=== PATIENT | female | born 1990 | race Caucasian/White ===

== ENCOUNTER 2016-10-04 11:12 | Emergency (ER) | payer MEDICAID ==
[~2016-10-04 11:12] MED LIST: PREN29TA PO; REGL10TA5 PO; ZOFR4TAB3 SL
--- NOTE | 2016-10-04 12:25 | PD ---
HPI Travel History International Travel<30 Days: No Contact w/Intl Traveler<30Days: No Known Affected Area: No History of Present Illness HPI This patient is a 26-year-old 1 para 0 EDC is February 20, 2017 presently at 20 weeks and 1 day she presents with the chief complaint of lower abdominal cramping states when she wiped she saw a pinkish bloody discharge on the tissue that was this a.m. the cramping started last night however was mild and it increased this morning she's been having symptoms of a cold for about a week sinus stuffiness states she had a fever of 100.4 earlier she spoke with her physician Dr. Yost who told her to take plain Tylenol Presently no bleeding or temperature is 98.2 no diarrhea or constipation no sore throat no cough complicated by hyperemesis in the first trimester History Past Medical History Narrative Medical No known drug allergies no major medical problems Obstetric History Obstetric History First Past Surgical History Narrative Surgical Breast augmentation dental surgery tonsils and adenoids Family History Narrative Family History Diabetes heart disease Social History Alcohol Use: No Tobacco Use: No Substance Abuse: No Allergies-Medications (Allergen,Severity, Reaction): Coded Allergies: No Known Allergies (Verified , 07/07/16) Home Meds Active Scripts Metoclopramide (Reglan)10 Mg Tab10 Mg PO QID PRN (NAUSEA OR VOMITING) 5 Days Ref 0 Prov:Jose Griggs MD 07/07/16 Ondansetron Odt (Zofran Odt)4 Mg Tab4 Mg SL Q6HR PRN (Nausea/Vomiting) #7 TAB Prov:Eri Tavera MD 07/05/16 Reported Medications Vit-Iron Carbonyl ( Plus Iron 29-1 mg)1 Tab Tab1 Tab PO DAILY #30 TAB Ref 0 07/05/16 Review of Systems General / Constitutional: Fever Eyes: No: Diploplia, Blurred Vision, Visual changes, Pain, Photophobia, Other HENT: No: Headaches, Vertigo, Dental Difficulties, Lightheadedness, Other Cardiovascular: No: Irregular Rhythm, Chest Pain or Discomfort, Palpitations, Tachycardia, Syncope, Varicosities, Edema, Cyanosis, Other Respiratory: Other (sinus congestion) Gastrointestinal: Nausea, Abdominal Pain Genitourinary: No: Urgency, Frequency, Dysuria, Nocturia, Hematuria, Decreased Urinary Output, Oliguria, Hesitancy, Dribbling, Incontinence, Pelvic Pain, Dyspareunia, Discharge, Menorrhagia, Vaginal Bleeding, Other Musculoskeletal: No: Limited ROM, Weakness, Cramping, Edema, Pain, Other Neurologic: No: Weakness, Dizziness, Syncope, Focal Abnormalities, Coordination Problem, Headache, Slurred Speech, Seizures, Other Physical Exam Narrative GENERAL: Well-nourished, well-developed patient. Alert oriented 3 and cooperative in no acute distress SKIN: Warm and dry. HEAD: Normocephalic and atraumatic. EYES: No scleral icterus. No injection or drainage. ENT: No nasal drainage noted. Mucous membranes pink. Airway patent. NECK: Supple, trachea midline. No JVD. CARDIOVASCULAR: Regular rate and rhythm without murmurs, gallops, or rubs. RESPIRATORY: Breath sounds equal bilaterally. No accessory muscle use. ABDOMEN/GI: Gravid consistent with about 20-22 weeks soft nontender no epigastric or right upper quadrant tenderness no organomegaly Gravid to [-] weeks size 20-22 weeks size Fundal Height: [-] GENITOURINARY: Speculum exam no blood in the vagina no pinkish of brownish discharge the cervix is visibly thick and closed and white discharge External Genitalia: intact and normal in appearance BUS glands: [-] Cervix: [-] Posterior firm Dilatation: [-] 0 Effacement: [-] 0 Station: [-] Presentation: [-] Vertex on ultrasound Membranes: [intact Uterine Contractions: [-]0 FHT's: Category: [-] Baseline: [-] 145 Reactive: [-] Variability: [-] Decels: [-] EXTREMITIES: No cyanosis or edema. BACK: Nontender without obvious deformity. No CVA tenderness. NEUROLOGICAL: Awake and alert. Motor and sensory grossly within normal limits. Five out of 5 muscle strength in all muscle groups. Normal speech. Data Data Vital Signs Reviewed: Yes (blood pressures 102/69 pulse is 112 temperatures 98.2) Labs Bedside ultrasound is done there is no funneling at the internal os Vertex presentation Baby is active with heart rate of 145 Placenta is posterior grade 1 Normal fluid MDM Medical Record Reviewed: No Interpretation(s) 26-year-old at 20 weeks and 1 day No clinical signs of premature labor Sinusitis Rule out UTI Narrative Course / MDM The urinalysis was negative culture not indicated Call placed to the patient to give her this results however voicemail not set up we'll attempt later Spoke with patient she is aware of her urinalysis results Told to by mouth hydrate Medication for sinuses along Vicks vapor rub Follow-up with her physician in 24-48 hours Plan By mouth fluid hydration Urinalysis Reevaluation Reevaluation urinalysis is negative patient feeling much better after hydration May use Vicks vapor rub Tylenol Cold sinus medicine for her sinusitis Diagnosis Diagnosis: Primary Impression: Sinusitis Qualified Code: J01.90 - Acute non-recurrent sinusitis, unspecified location Additional Impression: 20 weeks gestation of Disposition: DISCHARGE HOME Condition: Stable Saray Colunga MD Oct 04, 2016 12:25
[2016-10-04 13:38] LABS: BACTERIA, URINE RARE /hpf; BLOOD, URINE NEG (NEG); GLUCOSE,URINE NEG (NEG); KETONE, URINE NEG (NEG); NITRITE,URINE NEG (NEG); SQUAMOUS EPITHELIAL CELL URINE 5 /hpf (0-5); URINE COLOR YELLOW (YELLW/STRAW)
[2016-10-04 13:39] LABS: COMMENT (UR) CULT NOT INDICATED; CULTURE IF INDICATED CULT NOT INDICATED
== END 2016-10-04 13:23 | disposition home or self-care (01) ==
LOC: HOBED 11:12
DX: O99.512 Diseases of the respiratory system complicating pregnancy, second trimester (principal); J01.90 Acute sinusitis, unspecified; Z3A.20 20 weeks gestation of pregnancy
CPT/HCPCS: 76815; 81001

== ENCOUNTER → 2016-10-31 | Outpatient (CLI) | payer MEDICAID | LOC: HPND 10:44 | PROVIDERS: ATTEND Obstetrics & Gynecology | DX: O35.0XX0 Maternal care for (suspected) central nervous system malformation in fetus, not applicable or unspecified (principal) | CPT/HCPCS: 76811 ==